=== PATIENT | male | born 1935 | race Caucasian/White ===

== ENCOUNTER 2018-04-27 11:34 | Emergency (ER) | payer OTHER, MEDICARE ==
[~2018-04-27] VITALS: Ht 180.3 cm; Wt 84.1 kg
[~2018-04-27 11:34] MED LIST: ASPI81TA85 PO; RANI1SYP PO; SENN8.6T28 PO; SERT25TA88 PO; SIMV40TA2 PO
[2018-04-27] MEDS ORDERED: SERT-155 (11:47)
[2018-04-27] MEDS ORDERED: NORCO, ANEXSIA 5/325MG TABLET (HYDROcodone/ACETAMINOPHEN) PO ONE (15:15)
[2018-04-27] MEDS ORDERED: NORCOTAB PO (15:18)
[2018-04-27 15:34] VITALS: BP 161/86
--- NOTE | 2018-04-27 16:07 | REP ---
Left rib series: Six views including PA chest. History: Left posterior rib pain. Status post fall. Findings: PA chest radiograph is normal. There is no evidence of infiltrate or free subdiaphragmatic air. No pneumothorax or hydrothorax is seen. Mediastinum is not widened. Heart size is normal. Multiple views of the left rib cage demonstrate a minimally displaced fracture of the left posterolateral 7th rib. There are also a nondisplaced fractures involving the left posterolateral 6th and 8th ribs. Impression: Left posterolateral 6th, 7th and 8th rib fractures. Lung fisher are clear. Electronically Signed by Roel Stubbs MD 04/27/2018 05:26 P
== END 2018-04-27 15:36 | disposition home or self-care (01) ==
LOC: M ED 11:34
DX: S22.42XA Multiple fractures of ribs, left side, initial encounter for closed fracture (principal); W01.0XXA Fall on same level from slipping, tripping and stumbling without subsequent striking against object, initial encounter; Y92.018 Other place in single-family (private) house as the place of occurrence of the external cause; I10 Essential (primary) hypertension; Z79.899 Other long term (current) drug therapy; Z79.82 Long term (current) use of aspirin

== ENCOUNTER → 2019-11-21 | Outpatient (REF) | payer MEDICARE, OTHER ==
[~2019-11-21] MED LIST changes: -ASPI81TA85 PO; +ASPI81TA86 PO; +HYDR-3715 PO; +NORV5TAB PO; +SERT25TA21 PO; -SERT25TA88 PO; +SERT50TA29; -SIMV40TA2 PO; +SIMV40TA20 PO
== END ==
LOC: M LAB REF 10:55
PROVIDERS: ATTEND Dermatology
DX: C44.222 Squamous cell carcinoma of skin of right ear and external auricular canal (principal); C44.319 Basal cell carcinoma of skin of other parts of face; C44.329 Squamous cell carcinoma of skin of other parts of face

== ENCOUNTER → 2021-09-23 | Outpatient (REF) | payer MEDICARE, OTHER ==
[2021-09-23 13:15] LABS: TOTAL PROTEIN 7.1 GM/DL (6.4-8.2)
[2021-09-23 13:37] LABS: FOLATE 15.7 NG/ML
== END ==
LOC: M LAB REF 12:14
PROVIDERS: ATTEND Internal Medicine
DX: G60.9 Hereditary and idiopathic neuropathy, unspecified (principal)

== ENCOUNTER → 2023-04-15 | Outpatient (CLI) | payer MEDICARE, OTHER | LOC: M WUC 13:12 | PROVIDERS: ATTEND Internal Medicine | DX: R05.9 Cough, unspecified (principal); M41.34 Thoracogenic scoliosis, thoracic region; I77.810 Thoracic aortic ectasia ==

== ENCOUNTER → 2023-06-01 | Outpatient (CLI) | payer MEDICARE, OTHER | LOC: M EKG 11:00 | PROVIDERS: ATTEND Internal Medicine | DX: R42 Dizziness and giddiness (principal); I45.2 Bifascicular block ==

== ENCOUNTER 2023-06-18 10:56 | Inpatient (IN) | payer MEDICARE, OTHER ==
[~2023-06-18] VITALS: Ht 180.3 cm; Wt 84.1 kg
[~2023-06-18 10:56] MED LIST changes: -SERT50TA29; +SERT50TA29 PO; +amLODIPine 5 MG TAB PO SCH
[2023-06-18] MEDS ORDERED: FINA5TAB2 PO (11:14)
[2023-06-18] MEDS ORDERED: ATOR40TA75 PO (11:14)
[2023-06-18] MEDS ORDERED: FAMO40TA3 PO (11:14)
[2023-06-18 12:08] LABS: BASO # 0.1 10^3/uL (0.0-0.2); BASO % 0.7 % (0.0-1.0); EOS # 0.1 10^3/uL (0.0-0.5); EOS % 0.8 % (0.0-3.0); HEMATOCRIT 47.8 % (42.0-52.0); HEMOGLOBIN 15.7 g/dl (13.5-17.5); LYMPH # 1.2 10^3/uL (1.5-5.0); LYMPH % 12.3 % (24.0-44.0); MEAN CORPUSCULAR HEMOGLOBIN 30.8 pg (27.0-33.0); MEAN CORPUSCULAR HGB CONC 32.8 g/dl (32.0-36.5); MEAN CORPUSCULAR VOLUME 93.9 fl (80.0-96.0); MONO # 0.6 10^3/uL (0.0-0.8); MONO % 6.4 % (2.0-8.0); NEUTROPHILS # 7.8 10^3/uL (1.5-8.5); NEUTROPHILS % 79.5 % (36.0-66.0); PLATELET COUNT, AUTOMATED 206 10^3/uL (150-450); RED BLOOD COUNT 5.09 10^6/uL (4.30-6.10); WHITE BLOOD COUNT 9.8 10^3/uL (4.0-10.0)
[2023-06-18 12:19] LABS: INR 0.94; PARTIAL THROMBOPLASTIN TIME 26.2 SECONDS (24.8-34.2); PROTHROMBIN TIME 12.3 SECONDS (12.5-14.5)
[2023-06-18 12:37] LABS: ALBUMIN 3.7 G/DL (3.2-5.2); ALKALINE PHOSPHATASE 86 U/L (46-116); ALT/SGPT 21 U/L (7.0-40); AST/SGOT 20 U/L (<34); BILIRUBIN,DIRECT 0.2 MG/DL (<0.4); BILIRUBIN,TOTAL 0.8 MG/DL (0.3-1.2); BLOOD UREA NITROGEN 22 MG/DL (9-23); CALCIUM LEVEL 8.9 MG/DL (8.3-10.6); CARBON DIOXIDE LEVEL 28 MMOL/L (20-31); CHLORIDE LEVEL 103 MMOL/L (98-107); CK-MB VALUE MASS < 1.0 NG/ML (<3.6); CREATININE FOR GFR 0.93 MG/DL (0.70-1.30); GLOMERULAR FILTRATION RATE > 60.0 (>35); GLUCOSE, FASTING 128 MG/DL (74-106); SODIUM LEVEL 137 MMOL/L (136-145); TOTAL PROTEIN 6.5 G/DL (5.7-8.2)
[2023-06-18 12:38] LABS: FREE T4 0.87 NG/DL (0.89-1.76); THYROID STIMULATING HORMONE 1.718 uIU/ML (0.55-4.78)
[2023-06-18 12:47] LABS: CPK CREATINE PHOSPHOKINASE 62 U/L (46-171); MB/CK RELATIVE INDEX 1.61 (< OR =4)
[2023-06-18] MEDS ORDERED: ISOVUE-370 76% 100ML VIAL As Ordered ONE (12:54)
[2023-06-18 12:59] LABS: C REACTIVE PROTEIN QUANTITATIV < 0.40 MG/DL (<1.0)
[2023-06-18] MEDS: ASPIRIN 81MG CHEW TABLET PO ONE (13:01)
[2023-06-18] MEDS: ACETAMINOPHEN TAB 650MG DOSE (2X325MG) PO ONE (13:45)
[2023-06-18] MEDS ORDERED: AMLO1TAB24 PO (15:39)
[2023-06-18] MEDS ORDERED: HOME MED LIST COMPLETE! XX SCH (15:40)
[2023-06-18] MEDS ORDERED: MAALOX 30 ML SUSP *UDC PO PRN (15:45)
[2023-06-18] MEDS ORDERED: MOM 30ML SUSPENSION UDC PO PRN (15:45)
[2023-06-18] MEDS: ACETAMINOPHEN TAB 650MG DOSE (2X325MG) PO PRN (18:00)
[2023-06-18] MEDS: amLODIPine 5 MG TAB PO ONE (18:02)
[2023-06-18 19:06] VITALS: BP 192/108; TEMP 98; O2SAT 95
[2023-06-18 20:40] VITALS: BP 192/108
[2023-06-18] MEDS: hydrALAZINE 20MG/ML 1ML VIAL IV ONE (20:40)
[2023-06-18 23:27] VITALS: BP 158/80
[2023-06-18 23:53] VITALS: BP 127/61; TEMP 98.1; O2SAT 92
[2023-06-19 03:48] VITALS: BP 143/70; TEMP 97.8; O2SAT 94
[2023-06-19 07:41] VITALS: BP 136/64; TEMP 97.4; O2SAT 91
[2023-06-19 08:50] VITALS: BP 124/64
[2023-06-19 08:52] LABS: BLOOD UREA NITROGEN 17 MG/DL (9-23); CALCIUM LEVEL 9.2 MG/DL (8.3-10.6); CARBON DIOXIDE LEVEL 28 MMOL/L (20-31); CHLORIDE LEVEL 106 MMOL/L (98-107); CREATININE FOR GFR 0.89 MG/DL (0.70-1.30); GLOMERULAR FILTRATION RATE > 60.0 (>35); GLUCOSE, FASTING 102 MG/DL (74-106); MAGNESIUM LEVEL 2.2 MG/DL (1.8-2.4); POTASSIUM SERUM 4.1 MMOL/L (3.5-5.1); SODIUM LEVEL 139 MMOL/L (136-145)
[2023-06-19] MEDS ORDERED: ENOXAPARIN 40MG/0.4ML SYRINGE (J1650 PER 10MG) SC SCH (09:00)
[2023-06-19] MEDS ORDERED: amLODIPine 5 MG TAB PO SCH (09:00)
[2023-06-19 09:13] LABS: HEMOGLOBIN A1c 5.9 % (4.0-6.0)
[2023-06-19] MEDS: amLODIPine 5 MG TAB PO SCH (10:01)
[2023-06-19 10:04] VITALS: BP 132/64
[2023-06-19 12:00] VITALS: BP 128/64; TEMP 98.2; O2SAT 90
[2023-06-19] MEDS ORDERED: ASPI81CH33 PO (12:07)
[2023-06-20] MEDS ORDERED: NORV5TAB PO (05:44)
[2023-06-21] MEDS ORDERED: ENOXAPARIN 40MG/0.4ML SYRINGE (J1650 PER 10MG) SC SCH (09:00)
== END 2023-06-19 14:41 | disposition home or self-care (01) | DRG 305 ==
LOC: M ED 10:56 → M ED INP 15:44 → M PCU 18:57
PROVIDERS: ADMIT Student in an Organized Health Care Education/Training Program; ATTEND Student in an Organized Health Care Education/Training Program
PROC: B246ZZZ Ultrasonography of Right and Left Heart (ICD-10-PCS; principal; 2023-06-19)
DX: I16.0 Hypertensive urgency (principal); R26.89 Other abnormalities of gait and mobility; N40.0 Benign prostatic hyperplasia without lower urinary tract symptoms; I10 Essential (primary) hypertension; E78.5 Hyperlipidemia, unspecified; K21.9 Gastro-esophageal reflux disease without esophagitis; R29.6 Repeated falls; Z85.3 Personal history of malignant neoplasm of breast; Z79.899 Other long term (current) drug therapy; Z11.52 Encounter for screening for COVID-19

== ENCOUNTER → 2023-06-24 | Outpatient (CLI) | payer MEDICARE, OTHER ==
[~2023-06-24] MED LIST changes: +AMLO1TAB24 PO; +ASPI81CH33 PO; +ATOR40TA75 PO; +FAMO40TA3 PO; +FINA5TAB2 PO; -amLODIPine 5 MG TAB PO SCH
[2023-06-24 14:13] LABS: FOLATE 21.58 NG/ML (>5.4)
== END ==
LOC: M WUC 10:46
PROVIDERS: ATTEND Psychiatry & Neurology Neurology
DX: E53.8 Deficiency of other specified B group vitamins (principal); G62.9 Polyneuropathy, unspecified